=== PATIENT | male | born 1975 | race Asian ===

== ENCOUNTER 2024-10-21 07:15 | Day surgery (SDC) | payer OTHER, SELFPAY ==
[2024-10-19 14:45] VITALS: BMI 25.8
[2024-10-19 15:06] VITALS: BMI 25.8
[2024-10-21 08:03] VITALS: BP 133/91; PULSE 85; RESP 16; TEMP 36.9; O2SAT 100
[2024-10-21] MEDS: Lactated Ringers 1,000 ML 100 ML IVCONT (08:24)
--- NOTE | 2024-10-21 09:00 | P.CONAN_ITS ---
Documented by User: Kailey Silva NP 10/20/24 09:27 HPI - Anesthesia Eval Consult details Narrative: 48yo M for Bilateral Lateral Eye Muscle Recession/Resection, Right Superior Rectus Recession PENDING SALE TO [facility] Past Medical History Medical History (Updated 10/19/24 @ 14:41 by Erica Aleman RN) White coat syndrome without diagnosis of hypertension Surgical History Surgical History H/O colonoscopy Social History Social History Are you a primary patient care technician instructor to a significant other at home: No Do you presently have visiting nurse or other home services: No Patient Tobacco Use Status: Never used Tobacco Use of substances other than those prescribed or required for medical reasons: No Have you been hit, kicked, punched, or otherwise hurt by someone within the past year? If so, by whom?: No Spiritual Healthcare Practices: none [employer] Healthcare Practices: [place] Cultural Healthcare Practices: none Are you DNR?: No Advance Directives: No (states is primary contact) Advance Directives on File: No Recently lost weight without trying: No Eating poorly because of decreased appetite: No Nutrition Risks: No Nutritional Risk Poor oral hygiene: No Meds Allergies Allergy/AdvReac Type Severity Reaction Status Date / Time No Known Allergies Allergy Verified 10/21/24 08:02 Home Medications ?Medication ?Instructions ?Recorded ?Confirmed ?Last Taken ?Type Tylenol PRN Pain 10/21/24 Unknown History omeprazole PRN Acid Reflux 10/21/24 10/21/24 Unknown History Exam Height,Weight and Vital Signs: Height 5 ft 4.17 in Weight 68.5 kg Assessment and Plan Assessment Anesthesia Assessment: Chart Reviewed Documented by User: Susana Hayes DO 10/21/24 09:21 PENDING SALE TO [facility] Past Medical History Medical History (Updated 10/19/24 @ 14:41 by Erica Aleman RN) White coat syndrome without diagnosis of hypertension Family History Family history of problems with anesthesia: No Surgical History Surgical History H/O colonoscopy History of Problems with Anesthesia: No Social History Social History Are you a primary patient care technician instructor to a significant other at home: No Do you presently have visiting nurse or other home services: No Patient Tobacco Use Status: Never used Tobacco Use of substances other than those prescribed or required for medical reasons: No Have you been hit, kicked, punched, or otherwise hurt by someone within the past year? If so, by whom?: No Spiritual Healthcare Practices: none [employer] Healthcare Practices: [place] Cultural Healthcare Practices: none Are you DNR?: No Advance Directives: No (states is primary contact) Advance Directives on File: No Recently lost weight without trying: No Eating poorly because of decreased appetite: No Nutrition Risks: No Nutritional Risk Poor oral hygiene: No Meds Allergies Allergy/AdvReac Type Severity Reaction Status Date / Time No Known Allergies Allergy Verified 10/21/24 08:02 Home Medications ?Medication ?Instructions ?Recorded ?Confirmed ?Last Taken ?Type Tylenol PRN Pain 10/21/24 Unknown History omeprazole PRN Acid Reflux 10/21/24 10/21/24 Unknown History Exam Exam Date and Time: 10/21/24 0900 Height,Weight and Vital Signs: Height 5 ft 4.17 in Weight 68.5 kg Vital Signs Temperature 98.5 F 10/21/24 08:03 Pulse Rate 85 10/21/24 08:03 Respiratory Rate 16 10/21/24 08:03 Blood Pressure 133/91 H 10/21/24 08:03 Pulse Oximetry 100 10/21/24 08:03 Oxygen Delivery Method Room Air 10/21/24 08:03 Temperature 98.5 F 10/21/24 08:03 Pulse Rate 85 10/21/24 08:03 Respiratory Rate 16 10/21/24 08:03 Blood Pressure 133/91 H 10/21/24 08:03 Pulse Oximetry 100 10/21/24 08:03 Oxygen Delivery Method Room Air 10/21/24 08:03 Airway Mallampati Class: I TM Dist: <=3cm Neck ROM: Full Loose/Missing/Broken Teeth: No (patient denies any loose or broken teeth) Heart: S1S2 Lungs: CTAB Assessment and Plan Assessment Anesthesia Assessment: Anesthesia Plan Discussed and Chart Reviewed Final Anesthetic Review Family History of Problems with Anesthesia: No History of Problems with Anesthesia: No NPO: Yes ASA Class: I Final Preanesthetic Review: No Changes in Pt Med Stat, Meds/Allgs Chart Reviewed, Consent Obtained/Reviewed and Anes Risks/Benef Reviewed Patient Risk: Low Procedure Risk: Low Anesthetic Plan Anesthetic Plan: GA and Agree w/ Assess. and Plan Disposition: Standard PACU
[2024-10-21 10:04] VITALS: BP 134/91; PULSE 103; RESP 16; TEMP 36.3; O2SAT 100
--- NOTE | 2024-10-21 10:05 | P.OPHTHAL_ITS ---
Ophthalmology Operative Note Date of Service: 10/21/24 Narrative: Diagnoses 1. Exotropia 2. Right dissociated vertical deviation. Postoperative diagnoses same. Procedures 1. Bilateral lateral rectus recessions of 6 mm 2. Recession of right superior rectus [address] Gutiérrez. Anesthesia general. Complications none. The patient was brought to the operative room placed under general anesthesia. The eyes were prepped and draped in the usual sterile ophthalmic fashion. A lid speculum was placed in the right eye and an incision was made at bare sclera in the inferotemporal fornix. The lateral rectus was hooked and secured with a double-armed Vicryl suture. It was disin serted from the globe and reattached to a position 6 mm behind the original insertion. Conjunctiva was closed with interrupted Vicryl sutures. An incision was then made down to bare sclera in the superotemporal fornix. The superior rectus was hooked and secured with a double-armed Vicryl suture. It was disinserted from the globe and reattached to a position 5 mm behind the original insertion. Conjunctiva was closed with interrupted Vicryl sutures. An identical recession of the lateral rectus was then performed on the left eye. The patient was then awoken from general anesthesia and discharged to postoperative recovery in good condition.
[2024-10-21 10:09] VITALS: BP 136/97; PULSE 90; RESP 16; O2SAT 100
[2024-10-21 10:14] VITALS: BP 131/93; PULSE 87; RESP 16; O2SAT 100
[2024-10-21 10:19] VITALS: BP 134/94; PULSE 85; RESP 16; O2SAT 100
[2024-10-21 10:34] VITALS: BP 145/105; PULSE 87; RESP 16; TEMP 36.3; O2SAT 100
== END 2024-10-21 11:03 | disposition home or self-care (01) ==
PROVIDERS: PCP Internal Medicine; Visit Provider Ophthalmology
PROC: (CPT 67311; principal; 2024-10-21 09:10)
DX: H50.15 Alternating exotropia (principal); R03.0 Elevated blood-pressure reading, without diagnosis of hypertension; Z79.899 Other long term (current) drug therapy
CPT/HCPCS: 67311; 67314; J0131; J1100; J1596; J1885; J2003; J2405; J2704; J3010